=== PATIENT | female | born 1960 | race Caucasian/White ===

== ENCOUNTER 2018-09-05 15:17 | Emergency (ER) | payer MEDICARE ==
[~2018-09-05] VITALS: Ht 170.2 cm; Wt 61.2 kg
[2018-09-05 15:20] VITALS: BP 180/90
--- NOTE | 2018-09-05 16:05 | RAD ---
Examination: 3 views of the left foot HISTORY: History of fall down the stairs, bruising COMPARISON: None available Findings/ impression: Deformities identified in the head of the second, third, fourth, fifth metatarsals could be congenital or due to old trauma or prior inflammatory joint disease. Correlate clinically. No obvious acute fracture is identified. Electronically signed by: Yuri Sams MD (09/05/2018 4:02 PM) [facility]
--- NOTE | 2018-09-05 16:34 | PHYS DOC ---
Past Medical History Past Medical History: Other Additional Past Medical Histor: JENNI-DANLOS SYNDROME Past Surgical History: Hysterectomy, Other Additional Past Surgical Histo: MULTIPLE ORTHOPEDIC PROCEDURES DUE TO JENNI- DANLOS Alcohol Use: None Drug Use: None Adult General Chief Complaint Chief Complaint: FOOT INJURY PAIN HPI HPI Patient is a 58 year old female with a history of multiple surgeries to the left foot who presents today complaining of pain after she fell down yesterday when walking on a cider block. Patient denies any loss of consciousness. Review of Systems Review of Systems Constitutional: Denies fever or chills [] Musculoskeletal: Left foot pain Integument: Denies rash or skin lesions [] Neurologic: Denies headache, focal weakness or sensory changes [] All other systems were reviewed and found to be within normal limits, except as documented in this note. Allergies Allergies Allergies Coded Allergies Type Severity Reaction Last Updated Verified Penicillins Allergy Intermediate Unknown 09/05/18 Yes pregabalin Allergy Intermediate Rash 09/05/18 Yes Physical Exam Physical Exam Constitutional: Well developed, well nourished, no acute distress, non-toxic appearance. [] Skin: Warm, dry, no erythema, no rash. [] Back: No tenderness, no CVA tenderness. [] Extremities: Left foot appears chronically deformed, most of the deformities of the deformities of from the second toe to the fifth toe. No range of motion to the distal due to deformity. Patient states she had surgery to the area where they disconnected the toes from the rest of the foot. She states she's had a chronic open wound on the right distal second metatarsal. The wound is roughly 4 cm long which no drainage. There is multiple other chronic little lacerations on the left dorsal Foot. +2 Left Pedal Pulse. Cap refill less than 2 seconds the left foot. Bruising noted on the left great toe ventral aspect. Neurologic: Alert and oriented X 3, normal motor function, normal sensory function, no focal deficits noted. [] Psychologic: Affect normal, judgement normal, mood normal. [] Current Patient Data Vital Signs Vital Signs Date Time Temp Pulse Resp B/P (MAP) Pulse Ox O2 Delivery O2 Flow Rate FiO2 09/05/18 15:20 98.4 93 18 180/90 (120) 98 Room Air 98.4 EKG EKG [] Radiology/Procedures Radiology/Procedures [] Course & Med Decision Making Course & Med Decision Making Pertinent Labs and Imaging studies reviewed. (See chart for details) This is a 58-year-old female presenting to the ED today complaining of left foot pain after falling off a cinderblock yesterday. 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 Left foot x- rays interpreted by radiologist as negative for any acute findings. Patient was provided and is splinted by me. She is to follow-up with her own orthopedic doctor. She was discharged in stable condition. Provided crutches. OTC pain relievers. Dragon Disclaimer Dragon Disclaimer This electronic medical record was generated, in whole or in part, using a voice recognition dictation system. Departure Departure Impression: Primary Impression: Fall Additional Impression: Sprain of left foot Disposition: HOME, SELF-CARE Condition: STABLE Referrals: NO PCP (PCP) RYAN ARREDONDO MD Follow up with the orthopedic doctor or the one provided in one week Patient Instructions: Foot Sprain-Brief Additional Instructions: You were seen for left foot sprain, ice and elevate the extremity. Take over-the -counter pain relievers as needed for pain or your own pain medicine. Follow-up with your own orthopedic doctor or the provided one in 1-2 weeks. Ice and elevate the extremity. Problem Qualifiers Primary Impression: Fall Encounter type: initial encounter Qualified Codes: W19.XXXA - Unspecified fall, initial encounter Additional Impression: Sprain of left foot Encounter type: initial encounter Qualified Codes: S93.602A - Unspecified sprain of left foot, initial encounter DOYLE ANGEL APRN Sep 05, 2018 16:34
== END 2018-09-05 16:39 | disposition home or self-care (01) ==
LOC: ER 15:17
DX: S93.602A Unspecified sprain of left foot, initial encounter (principal); Z98.890 Other specified postprocedural states; Z88.0 Allergy status to penicillin; Z88.8 Allergy status to other drugs, medicaments and biological substances; W18.39XA Other fall on same level, initial encounter; Y93.01 Activity, walking, marching and hiking; Y92.89 Other specified places as the place of occurrence of the external cause; Y99.8 Other external cause status
CPT/HCPCS: 73630; 99283